=== PATIENT | male | born 1990 | race Caucasian/White ===

== ENCOUNTER 2018-07-11 14:50 | Emergency (ER) | payer BC ==
[~2018-07-11] VITALS: Wt 90.0 kg
[2018-07-11 14:56] VITALS: BP 154/86; PULSE 84; RESP 18
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
[2018-07-11] MEDS ORDERED: ACET325T33 PO (16:39)
[2018-07-11] MEDS ORDERED: IBUP-1542 PO (16:39)
== END 2018-07-11 17:10 | disposition home or self-care (01) ==
LOC: FTE 14:50
DX: S00.83XA Contusion of other part of head, initial encounter (principal); S49.92XA Unspecified injury of left shoulder and upper arm, initial encounter; Y08.89XA Assault by other specified means, initial encounter
CPT/HCPCS: 70450; 70486; 72100; 73030